=== PATIENT | male | born 1980 | race African-American/Black ===

== ENCOUNTER 2020-01-14 11:30 | Emergency (ER) | payer SELFPAY ==
--- NOTE | ~2020-01-14 | XR_ITS ---
EXAMINATION: XR chest 2V EXAM DATE: 01/14/2020 12:36 INDICATION: Cough and fever. TECHNIQUE: Frontal and lateral projections of the chest obtained and reviewed. Comparison is made to prior examination from 10/17/2009. FINDINGS: There is a left-sided portacatheter. Previously seen right basilar pneumonia has resolved with minimal residual linear scarring. Interval development of small amount of left-sided ill-defined airspace disease probably developing bronchopneumonia. The lungs are otherwise clear. There are no pleural effusions. The cardiomediastinal silhouette is within normal limits. There is no pneumothor ax suspected. The bones and soft tissues are unremarkable. IMPRESSION: Probable developing small amount of left basilar bronchopneumonia. Reviewed, dictated and finalized at location A. L EXPERT
[2020-01-14 11:34] VITALS: BP 144/96; PULSE 114; RESP 18; TEMP 37.3; O2SAT 94
--- NOTE | 2020-01-14 12:01 | ED.URI ---
HPI - URI/Sore Throat General Chief Complaint: Upper Respiratory Infection Stated Complaint: Sick for a month Time Seen by Provider: 01/14/20 11:38 Source: patient Mode of arrival: ambulatory Limitations: no limitations History of Present Illness HPI Narrative: This is a 39 year old male that presents to the ER for cold symptoms x 1 month. Reports fever, cough, congestion, rhinorrhea, and shortness of breath. Reports a history of asthma and that he has been having to use his inhaler frequently and just ran out. Denies chest pain. Related Data Home Medications Medication Instructions Recorded Confirmed amlodipine 01/14/20 Allergies Allergy/AdvReac Type Severity Reaction Status Date / Time Pecan Allergy Intermediate RASH Uncoded 01/14/20 11:49 Shrimp Allergy Unknown SHELLFISH Uncoded 01/14/20 11:49 Review of Systems Review of Systems: Narrative: CONSTITUTIONAL: Reports fever, chills ENT: Reports rhinorrhea, congestion. Denies sore throat, or otalgia. CARDIOVASCULAR: Denies chest pain RESPIRATORY: Reports cough and dyspnea. All systems reviewed & are unremarkable except as noted in HPI and below PMFSH Past Medical History Medical History (Updated 01/14/20 @ 13:30 by Mony Duran PA-C) History of asthma History of eczema History of gastroesophageal reflux (GERD) Social History Social History (Updated 01/14/20 @ 12:06 by Mony Duran PA-C) Smoking status: Current every day smoker Substance use: never Gender identity (if verbalized by the patient): Male Exam Narrative: Exam Narrative: GENERAL: Well-appearing, well-nourished, and in no acute distress. HEAD: Normocephalic, atraumatic. EYES: EOMI. ENT: Turbinates swollen and pale. Mucous membranes moist. Oropharynx without tonsillar hypertrophy exudate or other lesions. Bilateral TMs pearly thomas non-bulging NECK: Supple. No adenopathy or masses. CHEST: No respiratory distress. Scattered wheezes. No rales or rhonchi HEART: Regular rate and rhythm. No murmur heard. Normal peripheral pulses EXTREMITIES: Normal range of motion. No edema. SKIN: Warm, dry, no rash. NEURO: No focal deficits. Alert and oriented x3. PSYCH: Normal mood and affect Course Reevaluation(s) Reevaluation #1: Patient with improved aeration after breathing treatments. Reports feeling much better Date: 01/14/20 Time: 13:26 Vital Signs Vital signs: Vital Signs Temperature 99.2 F 01/14/20 11:34 Pulse Rate 114 H 01/14/20 11:34 Respiratory Rate 18 01/14/20 11:34 Blood Pressure 144/96 H 01/14/20 11:34 Pulse Oximetry 94 01/14/20 11:34 Temperature 99.2 F 01/14/20 11:34 Pulse Rate 106 H 01/14/20 12:19 Respiratory Rate 16 01/14/20 12:19 Blood Pressure 144/96 H 01/14/20 11:34 Pulse Oximetry 94 01/14/20 11:34 MDM - URI/Sore Throat MDM Narrative Medical decision making narrative: Patient presents the emergency department for cold symptoms x1 month. He is afebrile and nontoxic-appearing. Mildly tachycardic upon arrival with scattered wheezes. This improved after breathing treatments. Patient given a dose of IV steroids in the ED as well. CBC is without leukocytosis. Lactic acid is not elevated. Chest x-ray shows probable developing left basilar bronchopneumonia. Patient will be started on antibiotics for pneumonia and a steroid taper for asthma exacerbation. He will be prescribed Albuterol as needed. He is to follow-up with primary care doctor. He was given warnings to return to the ER Lab Data Attestation: I reviewed the patient's lab results. Result diagrams: 01/14/20 12:03 01/14/20 12:03 Labs: Lab Results 01/14/20 01/14/20 01/14/20 Range/Units 12:03 12:03 12:03 WBC 9.1 (4.5-10.0) K/mm3 RBC 4.73 (4.6-6.20) M/mm3 Hgb 13.9 L (14.0-18.0) g/dL Hct 43.4 (42.0-52.0) % MCV 91.8 (80-100) fl MCH 29.4 (26-34) pg MCHC 32.0 (32-36) g/dl RDW 13.1 (11.5-14.5) % Plt Count 310
[2020-01-14] MEDS: ONDANSETRON INJ 4 MG/2 ML VIAL IV PUSH (12:03)
--- NOTE | 2020-01-14 12:05 | PC.NURSE ---
pt refusing influenza swab
[2020-01-14 12:11] VITALS: PULSE 122; RESP 18
[2020-01-14] MEDS: IPRATROPIUM BR 0.02% INH SOLN 0.5 MG/2.5 ML VIAL INHALATION ×2 (12:11→13:36)
[2020-01-14] MEDS: ALBUTEROL SULFATE NEB 2.5 MG/0.5 ML INH 5 MG INHALATION ×2 (12:11→13:36)
[2020-01-14 12:12] LABS: Basophils Absolute Auto 0.1 K/mm3 (0.0-0.1); Basophils Percent Auto 0.6 % (0.2-1.2); Eosinophils Absolute Auto 0.1 K/mm3 (0-0.3); Eosinophils Percent Auto 0.7 % (0-4.4); Hematocrit 43.4 % (42.0-52.0); Hemoglobin 13.9 g/dL (14.0-18.0); Immature Granulocyte Absolute 0.01 K/mm3 (0.00-0.031); Immature Granulocyte Percent A 0.1 % (0-0.5); Lymphocytes Absolute Auto 2.25 K/mm3 (0.9-3.2); Lymphocytes Percent Auto 24.8 % (18.3-44.2); Mean Corpuscular Hemoglobin 29.4 pg (26-34); Mean Corpuscular Volume 91.8 fl (80-100); Mean Platelet Volume 9.3 fl (7.4-10.4); Monocytes Absolute Auto 1.2 K/mm3 (0.1-0.6); Monocytes Percent Auto 13.1 % (2.6-8.5); Neutrophils Absolute Auto 5.5 K/mm3 (1.3-6.7); Neutrophils Percent Auto 60.7 % (45.5-73.1); Platelet Count Result 310 k/mm3 (150-375); Red Blood Count 4.73 M/mm3 (4.6-6.20); Red Cell Distribution Width 13.1 % (11.5-14.5); White Blood Count 9.1 K/mm3 (4.5-10.0)
[2020-01-14 12:19] VITALS: PULSE 106; RESP 16
[2020-01-14 12:23] LABS: Lactic Acid Reflex 1.7 mmol/L (0.7-2.1)
[2020-01-14] MEDS: methylPREDNISolone SOD SUCC 125 MG VIAL IV PUSH (12:24)
[2020-01-14 12:26] LABS: Blood Urea Nitrogen 13 mg/dL (9-20); CRP 4.3 mg/dL (<1.0); Calcium 9.4 mg/dL (8.4-10.2); Carbon Dioxide 33 mmol/L (22-30); Chloride 94 mmol/L (98-107); Estimated CRCL calculation 92 ml/min; Estimated Glomerular Filt Rate > 60; Glucose 99 mg/dL (75-110); Potassium 3.5 mmol/L (3.4-5.0); Sodium 142 mmol/L (137-145)
[2020-01-14 13:37] VITALS: PULSE 104; RESP 18
[2020-01-14 13:44] VITALS: PULSE 104; RESP 16
== END 2020-01-14 14:19 | disposition home or self-care (01) ==
PROVIDERS: Physician Assistant; Emergency Provider Family Medicine
DX: J18.1 Lobar pneumonia, unspecified organism (principal); K21.9 Gastro-esophageal reflux disease without esophagitis; J45.909 Unspecified asthma, uncomplicated; F17.200 Nicotine dependence, unspecified, uncomplicated
CPT/HCPCS: 36415; 71046; 80048; 83605; 85025; 86140; 94640; 96374; 96375; 99284; J2405; J2930

== ENCOUNTER 2021-07-17 18:38 | Emergency (ER) | payer SELFPAY ==
--- NOTE | ~2021-07-17 | XR_ITS ---
EXAMINATION: XR lumbar spine 2-3V DATE: 07/17/2021 21:16 INDICATION: Low back pain. TECHNIQUE: 3 views of lumbar spine were obtained. COMPARISON: None. FINDINGS: There is 7 degrees dextrocurvature of lumbar spine. There is mild chronic anterior wedging of T12 vertebral body, likely physiologic. There is mildly decreased disc height at L4-L5. There is i nterbody fusion at L5-S1. The facet joints are unremarkable. IMPRESSION: 1. Mild lumbar spondylosis. Reviewed, dictated and finalized at location A. IMPRESSION: 1. Mild lumbar spondylosis.
[2021-07-17 18:40] VITALS: BP 177/126; PULSE 77; RESP 18; TEMP 36.4; O2SAT 97
[2021-07-17 20:37] VITALS: BP 158/104; PULSE 99; RESP 20; TEMP 37.1; O2SAT 98
--- NOTE | 2021-07-17 21:12 | ED.BACK ---
HPI - Back Pain/Injury General Chief Complaint: Back Pain/Injury Stated Complaint: BACK PAIN Time Seen by Provider: 07/17/21 20:53 Source: patient Mode of arrival: ambulatory Limitations: no limitations History of Present Illness HPI Narrative: This is a 41 year old male that presents to the ER for low back pain present x1 week. No known injury or trauma. Reports the pain radiates down the back of his left leg. Worse with movement. Relieved with rest. He has been taking anti-inflammatories with little relief. Denies fever, abdominal pain, nausea, vomiting, dysuria, hematuria, numbness, or weakness. Related Data Home Medications Medication Instructions Recorded Confirmed amlodipine 01/14/20 Allergies Allergy/AdvReac Type Severity Reaction Status Date / Time Pecan Allergy Intermediate RASH Uncoded 07/17/21 20:38 Shrimp Allergy Unknown SHELLFISH Uncoded 07/17/21 20:38 Review of Systems Review of Systems: CONSTITUTIONAL: Denies fever GASTROINTESTINAL: Denies abdominal pain, nausea, vomiting GENITOURINARY: Denies dysuria or hematuria. MUSCULOSKELETAL: Reports back pain, joint pain, and myalgia. NEUROLOGIC: Denies numbness, or weakness. All systems reviewed & are unremarkable except as noted in HPI and below PMFSH Past Medical History Medical History (Updated 07/17/21 @ 21:47 by Mony Duran PA-C) History of asthma History of eczema History of gastroesophageal reflux (GERD) Social History Social History (Updated 01/14/20 @ 12:06 by Mony Duran PA-C) Smoking status: Current every day smoker Substance use: never Gender identity (if verbalized by the patient): Male Exam Narrative: GENERAL: Well-appearing, well-nourished, and in no acute distress. HEAD: Normocephalic, atraumatic. EYES: EOMI. CHEST: Clear to auscultation. No respiratory distress. No wheezes rales or rhonchi HEART: Regular rate and rhythm. No murmur heard. Normal peripheral pulses. ABDOMEN: Soft, nontender, nondistended, normal active bowel sounds. BACK: No midline spinal tenderness EXTREMITIES: Normal range of motion. No edema. Strength equal in bilateral lower extremities (5/5) SKIN: Warm, dry, no rash. NEURO: No focal deficits. Alert and oriented x3. PSYCH: Normal mood and affect Course Vital Signs Vital signs: Vital Signs Temperature 97.5 F L 07/17/21 18:40 Pulse Rate 77 07/17/21 18:40 Respiratory Rate 18 07/17/21 18:40 Blood Pressure 177/126 H 07/17/21 18:40 Pulse Oximetry 97 07/17/21 18:40 Temperature 98.7 F 07/17/21 20:37 Pulse Rate 99 07/17/21 20:37 Respiratory Rate 20 07/17/21 20:37 Blood Pressure 158/104 H 07/17/21 20:37 Pulse Oximetry 98 07/17/21 20:37 MDM - Back Pain/Injury MDM Narrative Medical decision making narrative: Patient presents the emergency department for low back pain present over the last week. No known injury or trauma. Patient is neurologically intact. Lumbar spine x-ray shows mild lumbar spondylosis. Patient updated on case findings. Instructed to rest, ice and take [id number] pain medication as needed. Will be prescribed muscle relaxer as needed for pain. He is to follow-up with primary care doctor. He was given warnings to return to the ER Imaging Data Radiologist's impression: ITS Impressions Lumbar Spine X-Ray 07/17/21 21:19 IMPRESSION: 1. Mild lumbar spondylosis. Critical Care Time Critical Care Time Critical Care Time: No Discharge Plan Discharge Clinical Impression: Lumbar radiculopathy Patient Disposition: Home, Self-Care Condition: Stable Instructions: Lumbar Radiculopathy (ED) Additional Instructions: Return to the ER if you experience fever, weakness, numbness, bowel/bladder incontinence, or any other symptoms that are concerning to you Rest, use ice/heat, take Toradol or Tylenol as needed for pain as well as muscle relaxer (Flexeril) as needed for pain. Take steroid taper as prescribed. M
--- NOTE | 2021-07-17 21:16 | PC.NURSE ---
Patient in xray.
[2021-07-17] MEDS: ACETAMINOPHEN 500 MG TABLET 1000 MG PO (21:19)
[2021-07-17] MEDS: KETOROLAC (*BKC) 60 MG/2 ML VIAL IM (21:19)
[2021-07-17] MEDS: diazePAM INJ (*CRX) 10 MG/2 ML SYRINGE 5 MG IM (22:00)
== END 2021-07-17 22:08 | disposition home or self-care (01) ==
PROVIDERS: Emergency Provider Emergency Medicine
DX: M54.16 Radiculopathy, lumbar region (principal); F17.200 Nicotine dependence, unspecified, uncomplicated
CPT/HCPCS: 72100; 96372; 99284; A9270; J1885; J3360

== ENCOUNTER 2024-01-07 09:28 | Emergency (ER) | payer OTHER, SELFPAY ==
--- NOTE | ~2024-01-07 | XR_ITS ---
EXAMINATION: XR chest 2V DATE: 01/07/2024 11:36 INDICATION: Cough. Upper respiratory infection. Wheezing. TECHNIQUE: Frontal and lateral views of the chest were obtained. COMPARISON: Chest 2 views 01/14/2020 FINDINGS: There is no pneumonia, pleural effusion, or pneumothorax. The heart size is normal. IMPRESSION: 1. No acute cardiopulmonary disease. Reviewed, dictated and finalized at location A. [employer]
[2024-01-07 09:32] VITALS: BP 150/95; PULSE 82; RESP 16; TEMP 36.4; O2SAT 99
[2024-01-07 11:19] VITALS: O2SAT 98
[2024-01-07] MEDS: LEVALBUTEROL NEB 1.25 MG/3 ML INHALATION (11:24)
[2024-01-07] MEDS: IPRATROPIUM BR 0.02% INH SOLN 0.5 MG/2.5 ML VIAL INHALATION (11:24)
[2024-01-07 11:26] VITALS: PULSE 53; RESP 20
[2024-01-07] MEDS: methylPREDNISolone SOD SUCC 125 MG VIAL IM (11:29)
--- NOTE | 2024-01-07 11:32 | ED.URI ---
HPI - URI/Sore Throat General Chief Complaint: Upper Respiratory Infection Stated Complaint: sick x 1 week Time Seen by Provider: 01/07/24 10:35 Source: patient and family Mode of arrival: ambulatory Limitations: no limitations History of Present Illness HPI Narrative: Patient is a 43-year-old male who presents the ED with report of URI symptoms. Patient reports having symptoms for the last 1 week, including cough, congestion, headaches, fevers. at bedside notes she had similar sx's and was diagnosed with influenza A. Patient states most of the symptoms have resolved, but he c/o persistent cough, wheezing, mild intermittent SOB. He notes history of asthma. He does not currently have an inhaler, has been using his 's old inhaler. Has also been using [id number] cough and cold medicines without much improvement. Denies chest pain. Denies abdominal pain, nausea, vomiting. Related Data Home Medications Medication Instructions Recorded Confirmed amlodipine 5 mg tablet 01/14/20 Allergies Allergy/AdvReac Type Severity Reaction Status Date / Time Pecan Allergy Intermediate RASH Uncoded 01/07/24 09:33 Shrimp Allergy Unknown SHELLFISH Uncoded 01/07/24 09:33 Review of Systems Review of Systems: CONSTITUTIONAL: See HPI. ENT: See HPI. CARDIOVASCULAR: Denies chest pain, palpitations, or edema. RESPIRATORY: See HPI. GASTROINTESTINAL: Denies abdominal pain, nausea, vomiting, or diarrhea. All systems reviewed & are unremarkable except as noted in HPI and below PMFSH Past Medical History Medical History History of asthma History of eczema History of gastroesophageal reflux (GERD) Social History Social History Smoking status: Current every day smoker Substance use: never Gender identity (if verbalized by the patient): Male Exam Narrative: GENERAL: Well appearing, well-nourished, non-toxic, in no acute distress. HEAD: Normocephalic, atraumatic. RESPIRATORY: Airway patent, respirations nonlabored. Occasional wheezing in lung bases bilaterally, worse on left CARDIOVASCULAR: Regular rate and rhythm without murmurs, rubs, or gallops. MUSCULOSKELETAL: Moves all extremities. No gross deformities. SKIN: Warm, dry, normal color. NEURO: A&O X3. Speech clear. Cranial nerves II-XII grossly intact. Steady gait. No ataxic movements. PSYCHIATRIC: Appropriate mood and affect. Normal interaction. Course Vital Signs Vital signs: Vital Signs Temperature 97.5 F L 01/07/24 09:32 Pulse Rate 82 01/07/24 09:32 Respiratory Rate 16 01/07/24 09:32 Blood Pressure 150/95 H 01/07/24 09:32 Pulse Oximetry 99 01/07/24 09:32 Temperature 97.5 F L 01/07/24 09:32 Pulse Rate 72 01/07/24 11:33 Respiratory Rate 20 01/07/24 11:33 Blood Pressure 150/95 H 01/07/24 09:32 Pulse Oximetry 98 01/07/24 11:19 Oxygen Delivery Room Air 01/07/24 11:19 MDM - URI/Sore Throat MDM Narrative Medical decision making narrative: Patient presented to ED with 1 week history of URI symptoms, with influenza A recently, reporting persistent cough, wheezing, history of asthma. Vital stable upon arrival. Patient afebrile oxygen stable on room air. Patient in no acute distress. Some scattered wheezing heard throughout lung luciano. Chest x-ray clear. Viral swabs negative. Will Tx as asthma exacerbation, viral URI. Will give nebulizer treatment + steroids, prescribe inhaler. Will send home with medrol Dosepak, advised close f/u with PCP for further evaluation. Patient in agreement with plan. Given return precautions. D/C in stable condition. Medical Records Attestation: I reviewed the patient's medical records. Lab Data Attestation: I reviewed the patient's lab results. Labs: Lab Results 01/07/24 Range/Units 11:28 Influenza A (RT-PCR) Negative (Negative) Influ
[2024-01-07 11:33] VITALS: PULSE 72; RESP 20
[2024-01-07 12:20] LABS: Influenza A QL RT-PCR Negative (Negative); Influenza B QL RT-PCR Negative (Negative); RSV RNA, RT-PCR Negative (Negative); SARS-CoV-2 RNA PCR Negative (Negative)
== END 2024-01-07 12:45 | disposition home or self-care (01) ==
PROVIDERS: Emergency Provider Physician Assistant
DX: J06.9 Acute upper respiratory infection, unspecified (principal); J45.901 Unspecified asthma with (acute) exacerbation; Z20.822 Contact with and (suspected) exposure to COVID-19; K21.9 Gastro-esophageal reflux disease without esophagitis; F17.200 Nicotine dependence, unspecified, uncomplicated
CPT/HCPCS: 71046; 87637; 94640; 96372; 99283; J2930

== ENCOUNTER 2024-01-17 15:14 | Emergency (ER) | payer OTHER, SELFPAY ==
[2024-01-17 15:29] VITALS: BP 141/92; PULSE 88; RESP 20; TEMP 36.3; O2SAT 98
[2024-01-17 16:40] VITALS: BP 152/102; PULSE 76; RESP 18; O2SAT 100
--- NOTE | 2024-01-17 16:44 | ED.GENADULT ---
[facility] - General Adult General Chief complaint: Dental/Oral Stated complaint: mouth abcess Time Seen by Provider: 01/17/24 16:36 Source: patient Mode of arrival: ambulatory Limitations: no limitations History of Present Illness HPI narrative: This is a 43-year-old who presents to the ED she complaint upper dental pain past 3-4 days. Patient reports that the pain is located just above the incisor. He felt a gush of fluid today and feels that the infection/abscess might have popped. Denies fevers, chills, nausea, vomiting, trismus, drooling. Related Data Allergies Allergy/AdvReac Type Severity Reaction Status Date / Time Pecan Allergy Intermediate RASH Uncoded 01/17/24 16:41 Shrimp Allergy Unknown SHELLFISH Uncoded 01/17/24 16:41 Review of Systems Review of Systems: All systems as dictated in [facility] Past Medical History Medical History History of asthma History of eczema History of gastroesophageal reflux (GERD) Social History Social History Smoking status: Current every day smoker Substance use: never Gender identity (if verbalized by the patient): Male Exam Narrative: GENERAL: Well-appearing, well-nourished, and in no acute distress. HEAD: Normocephalic, atraumatic. EYES: PERRLA and EOMI. ENT: Poor dentition throughout. Evidence of recently opened pocket of infection just above the right front incisor. purulent material noted. Nares clear, no rhinorrhea or epistaxis. Mucous membranes moist. Oropharynx without tonsillar hypertrophy exudate or other lesions. NECK: Supple. No adenopathy or masses. CHEST: No respiratory distress. Clear to auscultation. No wheezes rales or rhonchi HEART: Regular rate and rhythm. No murmur heard. Normal peripheral pulses. ABDOMEN: Soft, nontender, nondistended, normal active bowel sounds. MSK: Normal range of motion. No edema. SKIN: Warm, dry, no rash. NEURO: Alert and oriented x3. No focal deficits. PSYCH: Normal mood and affect. Course Vital Signs Vital signs: Vital Signs Temperature 97.3 F L 01/17/24 15:29 Pulse Rate 88 02/22/24 15:29 Respiratory Rate 20 01/17/24 15:29 Blood Pressure 141/92 H 01/17/24 15:29 Pulse Oximetry 98 01/17/24 15:29 Oxygen Delivery Room Air 01/17/24 15:29 Temperature 97.3 F L 01/17/24 15:29 Pulse Rate 76 01/17/24 16:40 Respiratory Rate 18 01/17/24 16:40 Blood Pressure 152/102 H 01/17/24 16:40 Pulse Oximetry 100 01/17/24 16:40 Oxygen Delivery Room Air 01/17/24 15:29 Medical Decision Making MDM Narrative Medical decision making narrative: This is a 43-year-old male who who presents to the ED with chief complaint of right-sided dental infection. Vitals are normal. Exam is revealing of poor dentition throughout, specifically worse with multiple rotting teeth in the right upper mouth. No trismus or drooling or signs of deep space infection. Patient will be given prescription for Augmentin and dental referral given. Advise the patient that this problem will not fully resolve until he is able to see a dentist. Pt will be discharged in stable condition. Return precautions given and supportive measures discussed. Pt is understanding and agreeable with plan for discharge and follow-up with PCP/dentist Vital Signs Vital Signs: Vital Signs Temperature 97.3 F L 01/17/24 15:29 Pulse Rate 88 01/17/24 15:29 Respiratory Rate 20 01/17/24 15:29 Blood Pressure 141/92 H 01/17/24 15:29 Pulse Oximetry 98 01/17/24 15:29 Oxygen Delivery Room Air 01/17/24 15:29 Temperature 97.3 F L 01/17/24 15:29 Pulse Rate 76 01/17/24 16:40 Respiratory Rate 18 01/17/24 16:40 Blood Pressure 152/102 H 01/17/24 16:40 Pulse Oximetry 100 01/17/24 16:40 Oxygen Delivery Room Air 01/17/24 15:29 Discharge Plan Discharge Clinical Impression: Dental i
== END 2024-01-17 16:57 | disposition home or self-care (01) ==
LOC: ANHED 16:49
PROVIDERS: Emergency Provider Physician Assistant
DX: K04.7 Periapical abscess without sinus (principal); J45.909 Unspecified asthma, uncomplicated; K21.9 Gastro-esophageal reflux disease without esophagitis; F17.200 Nicotine dependence, unspecified, uncomplicated
CPT/HCPCS: 99283